=== PATIENT | male | born 1990 | race Caucasian/White ===

== ENCOUNTER 2016-10-28 01:20 | Emergency (ER) | payer OTHER ==
[~2016-10-28] VITALS: Ht 188 cm; Wt 120.0 kg
[2016-10-28 01:22] VITALS: TEMP 36.7; Ht 188 cm; Wt 120.0 kg
[2016-10-28] MEDS ORDERED: SODIUM CHLORIDE 0.9% 1000ML 1,000 ML IV STA ×2 (01:54)
[2016-10-28] MEDS ORDERED: MoRPHine SULFATE 4 MG/ML 1 ML CARP\\VIAL IV STA (01:54)
[2016-10-28] MEDS ORDERED: ONDANSETRON INJ 2 MG/ML 2 ML VIAL IV STA (01:54)
[2016-10-28] MEDS ORDERED: OPTIRAY 320 IV PRN (02:00)
[2016-10-28 02:22] LABS: BASO % 0.7 %; BASO ABS # 0.09 K/uL (0-0.2); COMPLETE YES; EOS % 2.5 %; HEMATOCRIT 44.2 % (42-52); IG% 0.5 %; LYMPH % 26.6 %; LYMPH ABS # 3.25 K/uL (1.2-3.4); MEAN CORPUSCULAR HEMOGLOBIN 28.9 pg (25-34); MEAN CORPUSCULAR HGB CONC 34.4 g/dl (32-36); MEAN PLATELET VOLUME 10.8 fL (7.4-10.4); MONO % 8.8 %; NEUT % 60.9 %; PLATELET COUNT 313 K/uL (130-400); RED BLOOD COUNT 5.26 M/uL (4.7-6.1); WHITE BLOOD COUNT 12.24 K/uL (4.8-10.8)
[2016-10-28 02:39] LABS: BUN/CREATININE RATIO 11.3 (10-20); CALCIUM 8.8 mg/dl (8.5-10.1); CREATININE 1.2 mg/dl (0.60-1.40); POTASSIUM 3.8 mmol/L (3.5-5.1)
[2016-10-28 03:50] LABS: URINE APPEARANCE CLEAR (CLEAR); URINE BILIRUBIN NEG (NEG); URINE COLOR YELLOW; URINE NITRITE NEG (NEG); URINE PH 5.5 (4.5-7.5); UROBILINOGEN NEG (NEG); ZZUR CULT IF INDIC CLEAN CATCH NO
[2016-10-28 04:05] LABS: MANUAL MICROSCOPIC REQUIRED? NO; REVIEW REQ? NO
[2016-10-28 04:39] VITALS: BP 118/59; PULSE 58; O2SAT 97
[2016-10-28] MEDS ORDERED: PANTOprazole SOD 40 MG TAB PO STA (04:42)
[2016-10-28] MEDS ORDERED: PANT40TA PO (04:45)
--- NOTE | 2016-10-28 04:45 | EMERGENCY ROOM VISIT NOTE ---
History First contact with patient: 01:43 Chief Complaint: ABDOMINAL PAIN Stated Complaint: ABDOMINAL PAIN Nursing Triage Summary: abd pain started an hour ago in [facility]. Hx of pyloric stenosis and "pump in stomach" placed when he was nine months old. History of Present Illness The patient is a 26 year old male who presents to the Emergency Room with complaints of severe upper abdominal pain for the past 2 hours. Patient states he's had multiple abdominal surgeries for his pyloric stenosis and problems with his acid production in his stomach. Patient is unsure of exactly what was done. His surgeries were when he was less than a year old. Pain is currently 9 out of 10. Nothing makes it better or worse. It does not radiate. Patient denies chest pain, dyspnea, fever, chills, vomiting, diarrhea, back pain, urinary symptoms. Patient is currently incarcerated. He has a history of IV drug abuse. Nothing within the past 3 years since incarceration. Review of Systems See HPI for pertinent positives & negatives. A total of 10 systems reviewed and were otherwise negative. Past Medical/Surgical History Pyloric stenosis and abdominal surgeries and patient is unsure exactly what was done Social History Smoking Status: Current Every Day Smoker Marital Status: single Housing Status: other (prisoner) Occupation Status: other (prisoner) Current/Historical Medications Scheduled Pantoprazole (Protonix), 40 MG PO DAILY Physical Exam Vital Signs Date Time Temp Pulse Resp B/P (MAP) Pulse Ox O2 Delivery O2 Flow Rate FiO2 10/28/16 04:39 58 16 118/59 97 Room Air 10/28/16 02:39 41 17 106/79 94 Room Air 10/28/16 02:08 43 10/28/16 01:22 36.7 87 18 132/84 98 Room Air Physical Exam VITALS: Vitals are noted on the nurse's note and reviewed by myself. Vital signs stable. GENERAL: [facility] who appears in pain, in no acute distress, nondiaphoretic, well-developed well-nourished. SKIN: The skin was without rashes, erythema, edema, or bruising. There is no tenting of the skin. Capillary reflex less than 2 seconds. HEAD: Normocephalic atraumatic. EARS: External auditory canals clear, tympanic membranes pearly restrepo without erythema or effusion bilaterally. EYES: Pupils equal round and reactive to light and accommodation. Conjunctivae without injection, sclerae without icterus. Extraocular movements intact. NOSE: Patent, turbinates without inflammation or discharge. MOUTH: Mucous membranes moist. Pharynx without erythema or exudate. Uvula midline. Airway patent. Tongue does not deviate. NECK: Supple without nuchal rigidity. No lymphadenopathy. No thyromegaly. Cervical spine is nontender. No JVD. HEART: Regular rate and rhythm without murmurs gallops or rubs. LUNGS: Clear to auscultation bilaterally without wheezes, rales or rhonchi. No dullness to percussion. No retractions or accessory muscle use. ABDOMEN: Positive bowel sounds x 4. Normal tympanic percussion. Soft, exquisitely tender to palpation upper abdomen with prior surgical scars noted to the upper abdomen, no CVA tenderness, without masses or organomegaly. Gaytan sign negative. No guarding or rebound tenderness. MUSCULOSKELETAL: No muscle atrophy, erythema, or edema noted. NEURO: Patient was alert and oriented to person place and time. Normal sensation to light and sharp touch. No focal neurological deficits. Medical Decision & Procedures Laboratory Results 10/28/16 02:00 Red Blood Count 5.26, Mean Corpuscular Volume 84.0, Mean Corpuscular Hemoglobin 28.9, Mean Corpuscular Hemoglobin Concent 34.4, Mean Platelet Volume 10.8, Neutrophils (%) (Auto) 60.9, Lymphocytes (%) (Auto) 26.6, Monocytes (%) (Auto) 8.8, Eosinophils (%) (Auto) 2.5, Basophils (%) (Auto) 0.7, Neutrophils # (Auto) 7.45, Lymphocytes # (Auto) 3.25, Monocytes # (Auto) 1.08, Eosinophils # (Auto) 0.31, Basophils # (Auto) 0.09 10/28/16 02:00 Test 10/28/16 02:00 10/28/16 02:12 10/28/16 02:13 10/28/16 03:30 White Blood Count 12.24 K/uL (4.8-10.8) Red Blood Count 5.26 M/uL (4.7-6.1) Hemoglobin 15.2 g/dL (14.0-18.0) Hematocrit 44.2 % (42-52) Mean Corpuscular Volume 84.0 fL (80-100) Mean Corpuscular Hemoglobin 28.9 pg (25-34) Mean Corpuscular Hemoglobin Concent 34.4 g/dl (32-36) Platelet Count 313 K/uL (130-400) Mean Platelet Volume 10.8 fL (7.4-10.4) Neutrophils (%) (Auto) 60.9 % Lymphocytes (%) (Auto) 26.6 % Monocytes (%) (Auto) 8.8 % Eosinophils (%) (Auto) 2.5 % Basophils (%) (Auto) 0.7 % Neutrophils # (Auto) 7.45 K/uL (1.4-6.5) Lymphocytes # (Auto) 3.25 K/uL (1.2-3.4) Monocytes # (Auto) 1.08 K/uL (0.11-0.59) Eosinophils # (Auto) 0.31 K/uL (0-0.5) Basophils # (Auto) 0.09 K/uL (0-0.2) RDW Standard Deviation 38.0 fL (36.4-46.3) RDW Coefficient of Variation 12.5 % (11.5-14.5) Immature Granulocyte % (Auto) 0.5 % Immature Granulocyte # (Auto) 0.06 K/uL (0.00-0.02) Anion Gap 2.0 mmol/L (3-11) Est Creatinine Clear Calc Drug Dose 129.6 ml/min Estimated GFR () 96.8 Estimated GFR (Non- 83.5 BUN/Creatinine Ratio 11.3 (10-20) Calcium Level 8.8 mg/dl (8.5-10.1) Total Bilirubin 0.7 mg/dl (0.2-1) Direct Bilirubin 0.1 mg/dl (0-0.2) Aspartate Amino Transf (AST/SGOT) 20 U/L (15-37) Alanine Aminotransferase (ALT/SGPT) 52 U/L (12-78) Alkaline Phosphatase 75 U/L (45-117) Total Protein 7.7 gm/dl (6.4-8.2) Albumin 4.2 gm/dl (3.4-5.0) Lipase 112 U/L (73-393) Bedside Lactic Acid Venous 1.62 mmol/L (0.90-1.70) Bedside Troponin I < 0.030 ng/ml (0-0.045) Urine Color YELLOW Urine Appearance CLEAR (CLEAR) Urine pH 5.5 (4.5-7.5) Urine Specific [place] 1.040 (1.000-1.030) Urine Protein NEG (NEG) Urine Glucose (UA) NEG (NEG) Urine Ketones NEG (NEG) Urine Occult Blood NEG (NEG) Urine Nitrite NEG (NEG) Urine Bilirubin NEG (NEG) Urine Urobilinogen NEG (NEG) Urine Leukocyte Esterase NEG (NEG) Medications Administered Medications (Trade) Dose Ordered Sig/Shira Route Start Time Stop Time Status Last Admin Dose Admin Morphine Sulfate (MoRPHine SULFATE INJ) 4 mg NOW STAT IV 10/28/16 01:54 10/28/16 01:57 DC 10/28/16 02:11 4 MG Ondansetron HCl (Zofran Inj) 4 mg NOW STAT IV 10/28/16 01:54 10/28/16 01:58 DC 10/28/16 02:09 4 MG Sodium Chloride 1,000 ml @ 999 mls/hr Q1H1M STAT IV 10/28/16 01:54 10/28/16 02:54 DC 10/28/16 02:07 999 MLS/HR Sodium Chloride 1,000 ml @ 125 mls/hr Q8H STAT IV 10/28/16 01:54 10/28/16 09:53 10/28/16 02:08 125 MLS/HR ED Course Prior records/ancillary studies reviewed. Triage Nursing notes reviewed. Additional history obtained from correction officers. The patient's history was concerning for abdominal pain. Differential diagnosis: Etiologies such as appendicitis, diverticulitis, PUD, biliary pathology, UTI, pancreatitis, obstruction, mesenteric ischemia, aortic pathology, infections, inflammatory bowel disease, renal colic, as well as others were entertained. Physical examination findings: As above. ER treatment provided: Morphine, Zofran, IV fluids On reassessment the patient felt better. Diagnostics interpreted by me: EKG: Normal sinus, normal intervals, no acute ST-T wave changes, rate of 40. Impression sinus bradycardia interpreted by myself The labs revealed negative troponin. Stable H&H. Negative lactic acid Imaging studies: CT ABDOMEN & PELVIS: Visualized lower thorax demonstrates probable trace right-sided pleural effusion. Small hiatal hernia with probable prior Becca fundoplication. The liver, gallbladder, spleen, pancreas, and adrenal glands are unremarkable. Probable simple cysts within the right kidney. Otherwise, the kidneys, ureters and urinary bladder are unremarkable. The appendix is unremarkable. Stomach, small bowel, colon are unremarkable. No free fluid. No free air. No acute osseous abnormality. Radiologist: Vahe Martini MD Exam and history seem consistent with upper abdominal pain that could be related to reflux. Patient felt much better after being medicated as above. No acute findings and CT imaging. Normal EKG. Negative troponin. Patient was tolerating fluids and was well-appearing. He felt much better and requested to leave. He was advised to follow-up with [facility] doctor in a day or 2 or here in the ER sooner for chest pain, abdominal pain, fevers, worsening signs or symptoms or as needed. While patient was asleep he is heart rate did drop down to the 40s. When he is awake his heart rate was back in the 60s. He is advised to the [facility] doctor for this. By the evaluation outlined above emergent etiologies such as appendicitis, diverticulitis, PUD, biliary pathology, UTI, pancreatitis, obstruction, mesenteric ischemia, aortic pathology, infections, inflammatory bowel disease, renal colic, as well as others were deemed relatively unlikely. The pt informed about the findings as listed above. All questions were answered and pleased with the treatment. Return instructions were outlined and the patient was discharged in stable condition. Outpatient prescription management: Protonix Referral: The patient was referred back to their primary care physician for follow-up in 2 to 3 days for a recheck of the current condition. Case reviewed with my attending. Medical Decision As above Medication Reconcilliation Current Medication List: was personally reviewed by me Blood Pressure Screening Patient's blood pressure: Normal blood pressure Impression Primary Impression: Epigastric abdominal pain Departure Information Dispostion Home / Self-Care Condition GOOD Prescriptions Pantoprazole (Protonix) 40 Mg Tab 40 MG PO DAILY for 14 Days, #14 TAB Prov: Leena Lopez ., GIULIANA 10/28/16 Referrals Jaime LONG (PCP) Patient Instructions My [facility] Additional Instructions Protonix 40 m tablet daily for next 2 weeks. Take this on an empty stomach. Try Maalox or Zantac for breakthrough symptoms for reflux. Avoid large meals. Avoid acidic foods. Rest and drink plenty of fluids as tolerated. Continue current medications. Avoid strenuous activities and anything that worsens your pain. Resume normal activities once your symptoms resolve. Return to the ER immediately for worsening or persistent chest pain, abdominal pain, black or blood in your stools, vomiting, fevers, chest pains, difficulty breathing, worsening of your condition, or as needed. Follow up with your primary physician in 2-3 days for a recheck of your current condition.
--- NOTE | 2016-10-28 07:19 | DIAGNOSTIC IMAGING REPORT ---
ABD/PELVIS IV CONTRAST ONLY CLINICAL HISTORY: 26 years-old Male presenting with severe upper abd pain. TECHNIQUE: Multidetector CT of the abdomen and pelvis was performed after the administration of intravenous contrast. IV contrast: 92 mL of Optiray 320. A dose lowering technique was used consistent with the principles of ALARA (as low as reasonably achievable). COMPARISON: None. CT DOSE (mGy.cm): The estimated cumulative dose is 863.67 mGy.cm. FINDINGS: [employer] topogram: Unremarkable. Lung bases: Minimal dependent opacities likely atelectasis. Normal heart size. Trace right pleural effusion. No pericardial effusion. Liver: Normal morphology. Slight heterogeneity of parenchymal enhancement. Periportal edema. No focal lesion. Vasculature grossly patent. Biliary: No intrahepatic or extrahepatic biliary ductal dilatation. Mild gallbladder wall thickening. The gallbladder is nondistended. Trace pericholecystic fat stranding. Pancreas: Normal. Spleen: Normal. Adrenal glands: Normal. Kidneys and ureters: Few subcentimeter hypodensity in the right kidney, too small to characterize but likely cysts. No hydronephrosis. Normal ureters. Bladder: Mild circumferential bladder wall thickening likely due to underdistention. Pelvic organs: Prostate and seminal vesicles normal. Bowel: Normal appendix. Inspissated material in the distal small bowel may indicate delayed transit. No bowel obstruction. Evidence of Becca fundoplication procedure. The gastroesophageal junction appears above the diaphragm suggesting slippage. Peritoneal cavity: No free fluid or intraperitoneal gas. Vasculature: Aorta and IVC patent and normal in caliber. Lymph nodes: Numerous subcentimeter mesenteric lymph nodes, nonspecific and possibly reactive. No pathologically enlarged lymph nodes by CT size criteria. Abdominal wall: Postsurgical changes along the right upper quadrant. Evidence of prior gastrostomy. Musculoskeletal: Normal. IMPRESSION: 1. Mild gallbladder wall thickening with trace pericholecystic fat stranding. The gallbladder is nondistended. This is equivocal but does raise suspicion for cholecystitis. Further evaluation with nuclear medicine hepatobiliary scan is suggested to exclude acute cholecystitis. Notably, this is discrepant from the preliminary report. 2. Heterogeneity of hepatic parenchymal enhancement with periportal edema. This is nonspecific and can be seen in the setting of hepatitis as well as aggressive volume resuscitation among other etiologies. 3. Postsurgical changes of Becca fundoplication with suggestion of slippage of the gastroesophageal junction. 4. Evidence of prior gastrostomy. 5. Trace right pleural effusion. The report will be called/faxed according to standard departmental protocol. Electronically signed by: Cliff Jones M.D. 10/28/2016 7:18 AM Dictated Date/Time: 10/28/2016 7:10 AM
--- NOTE | 2016-10-28 07:34 | EMERGENCY ROOM VISIT NOTE ---
ED Visit Note On the second radiologist reading, there was questionable fluid noted around the gallbladder and suspicion for possible early acute cholecystitis was raised. The initial reading did not talk about this finding. The [facility] was called and they were given the updated radiology report. The patient can be returned for continued pain or any lack of improvement. His gallbladder may need further investigation if his symptoms persist.
== END 2016-10-28 04:59 | disposition home or self-care (01) ==
LOC: C.EDB 01:22 → C.EDA 04:59
DX: R10.13 Epigastric pain (principal); Q40.0 Congenital hypertrophic pyloric stenosis; F17.210 Nicotine dependence, cigarettes, uncomplicated